=== PATIENT | male | born 1950 | race Caucasian/White ===

== ENCOUNTER 2017-02-04 17:15 | Emergency (ER) | payer OTHER ==
[2017-02-04 18:16] LABS: BASOPHILS 0.5 % (0-2); EOSINOPHILS 0.6 % (0-7); HEMATOCRIT 41.7 % (42.0-54.0); IMMATURE GRANULOCYTES 0.4 % (0-5); LYMPHOCYTES 16.1 % (15-50); MCH 30.9 pg (26.0-34.0); MCHC 33.6 g/dL (31.0-37.0); MCV 92.1 fL (80.0-100.0); MEAN PLATELET VOLUME 9.7 fL (7.4-10.4); NEUTROPHILS 73.4 % (40-80); RBC 4.53 10x6/uL (4.20-6.10); RDW 13.2 % (11.5-14.5); WBC 10.3 10x3/uL (4.8-10.8)
[2017-02-04 18:30] LABS: ALBUMIN 3.5 g/dL (3.4-5.0); ALKALINE PHOSPHATASE 102 U/L (46-116); ALT (SGPT) 29 U/L (10-68); CALC OSMOLALITY 273 mosm/kg (275-300); CALCIUM 9.1 mg/dL (8.5-10.1); CARBON DIOXIDE 27.1 mmol/L (21.0-32.0); CHLORIDE - SERUM 101 mmol/L (98-107); CREATININE - SERUM 0.8 mg/dL (0.6-1.3); GLUCOSE 117 mg/dL (74-106); POTASSIUM - SERUM 3.9 mmol/L (3.5-5.1); PROTEIN - SERUM 7.5 g/dL (6.4-8.2); SODIUM 137 mmol/L (136-145); UREA NITROGEN 11 mg/dL (7-18); eGFR NON AFRICAN AMERICAN > 90 mL/min (90-120)
[2017-02-04 18:33] LABS: PLATELET COUNT 239 10x3/uL (130-400)
[2017-02-04 18:41] LABS: CHOL - HDL RATIO 3.4 ratio (2.3-4.9); CHOLESTEROL, TOTAL 142 mg/dL (0-200); CKMB 0.3 U/L (0.0-3.6); CREATINE KINASE 38 UL (21-232); HDL CHOLESTEROL 42 mg/dL (32-96); LDL CHOLESTEROL 83 mg/dL (0-100); TRIGLYCERIDE 89 mg/dL (30-200); TROPONIN-I < 0.017 ng/mL (0.000-0.060)
== END 2017-02-04 19:38 | disposition home or self-care (01) ==
LOC: D.ER 17:15
PROVIDERS: Family Medicine
DX: R07.89 Other chest pain (principal); J20.9 Acute bronchitis, unspecified; I10 Essential (primary) hypertension; J44.9 Chronic obstructive pulmonary disease, unspecified; F17.200 Nicotine dependence, unspecified, uncomplicated; R00.0 Tachycardia, unspecified